=== PATIENT | female | born 1975 | race Caucasian/White ===

== ENCOUNTER 2016-10-29 18:35 | Emergency (ER) | payer BC ==
[2016-10-29 19:26] VITALS: BP 144/72; PULSE 70; RESP 18; TEMP 98.7
[2016-10-29] MEDS ORDERED: KETOROLAC 60 MG/2 ML VIAL IM STA (20:33)
[2016-10-29] MEDS ORDERED: ORPHENADRINE 30 MG/ML 2 ML VIAL IM STA (20:33)
--- NOTE | 2016-10-29 20:40 | ED ---
General Adult HPI - General Chief complaint: Back Pain/Injury Stated complaint: BACK PAIN Time Seen by Provider: 10/29/16 20:14 Source: patient, RN notes reviewed Mode of arrival: ambulatory Limitations: no limitations - History of Present Illness Initial comments: This is a 40-year-old female who presents with lower back pain. Patient states it started out of the blue while she was sitting at her desk at work yesterday. Patient denies any injury or trigger of the pain. Patient states she has a history of lower back pain and has had surgery in 2006 for a ruptured disc. Patient states she has not had many problems since then. Patient has not taken anything for the pain and states it is getting progressively worse. Patient states she has some radiation of the pain down the right thigh but denies any numbness/tingling or weakness. Patient is able to ambulate. Patient states the pain is better when standing and worse when sitting. Patient denies any change in bowel or bladder function or loss of sensation to the saddle area. Patient denies any chance of being . Patient denies any recent fever, chills, shortness breath, chest pain, abdominal pain, nausea/vomiting/diarrhea, hematuria, headache, or visual changes, or any other complaints. - Related Data Home Medications Medication Instructions Recorded Confirmed Albuterol Inhaler [Ventolin 1 - 2 puff INHALATION DIRECTED 05/04/14 10/29/16 Inhaler] PRN Fluticasone/Salmeterol [Advair 2 puff INHALATION DAILY 05/04/14 10/29/16 100-50 Diskus] Losartan [Cozaar] 50 mg PO DAILY 05/04/14 10/29/16 Magnesium 250 mg PO DAILY 05/04/14 10/29/16 Multivitamins, Thera [Multivitamin] 1 tab PO DAILY 05/04/14 10/29/16 metFORMIN HCL [Glucophage] 1,000 mg PO BID 05/04/14 10/29/16 Ferrous Sulfate [Feosol] 325 mg PO DAILY 05/08/14 10/29/16 Omeprazole (Unknown Dose, Otc) 1 tab PO DAILY PRN 05/25/14 10/29/16 sitaGLIPtin [Januvia] 100 mg PO DAILY 05/29/14 10/29/16 Previous Rx's Medication Instructions Recorded Acetaminophen-Codeine 300-30mg 2 each PO Q6HR PRN #30 tab 05/30/14 [Tylenol w/codeine #3] Ibuprofen [Motrin] 600 mg PO Q6HR PRN #30 tab 05/30/14 traMADol HCL [Ultram] 50 mg PO Q6HR #12 tab 10/29/16 Allergies Allergy/AdvReac Type Severity Reaction Status Date / Time No Known Allergies Allergy Verified 04/05/14 15:58 Review of Systems ROS Statement: Those systems with pertinent positive or pertinent negative responses have been documented in the HPI. ROS Other: All systems not noted in ROS Statement are negative. Past Medical History Past Medical History: Asthma, Diabetes Mellitus, Hypertension Additional Past Medical History / Comment(s): EDEMA ANKLES, FEET. MENSES SEVERE W/ PAIN, HEAVY. OB history:2 vaginal deliveries and one SAB History of Any Multi-Drug Resistant Organisms: None Reported Past Surgical History: Back Surgery, Hysterectomy Additional Past Surgical History / Comment(s): REPAIR RUPTURED DISC. LAPAROSCOPY FOR ENDOMETRIOSIS. Past Anesthesia/Blood Transfusion Reactions: No Reported Reaction Additional Past Anesthesia/Blood Transfusion Reaction / Comment(s): ADOPTED, NO KNOWN FAM HX. Past Psychological History: No Psychological Hx Reported Smoking Status: Never smoker Past Alcohol Use History: Occasional Past Drug Use History: None Reported General Exam - General Exam Comments Initial Comments: General: The patient is awake and alert, in no distress, and does not appear acutely ill. Neck: The neck is supple, there is no tenderness or JVD. Cardiovascular: There is a regular rate and rhythm. No murmur, rub or gallop is appreciated. Respiratory: Lungs are clear to auscultation, respirations are non-labored, breath sounds are equal. No wheezes, stridor, rales, or rhonchi. Musculoskeletal: There is tenderness to palpation over the lumbar spine, patient has full range of motion, strength 5/5 and Sensation intact. Patient is ambulatory in the EC. Radial pulses are 2+ bilaterally. Neurological: A&O x 3. CN II-XII intact, There are no obvious motor or sensory deficits. Coordination appears grossly intact. Speech is normal. Skin: Skin is warm and dry and no rashes or lesions are noted. Psychiatric: Normal mood and affect. Limitations: no limitations Course Vital Signs 10/29/16 19:23 Temperature 98.7 F Pulse Rate 70 Respiratory 18 Rate Blood Pressure 144/72 O2 Sat by Pulse 98 Oximetry Medical Decision Making - Medical Decision Making This is a 41-year-old female who presents with lower back pain since yesterday. On physical exam patient is neurologically intact. There is tenderness to palpation over the lumbar spine, patient has full range of motion, strength 5/5 and Sensation intact. Patient is ambulatory in the EC. Radial pulses are 2+ bilaterally. An x-ray of the lumbar spine was done and reviewed showing: Mild to moderate spondylosis at L4/L5 and L5/S1. No fracture. Report read by Dr. Zuñiga. Patient was given Toradol and Norflex in the EC today and patient noticed some relief.I discussed the x-ray results with patient. I discussed continuation of Tylenol and Motrin for pain. I discussed tramadol for breakthrough pain. Discussed heating pads. I discussed return parameters.Discussed that patient should follow up with PCP in one to 2 days or return to the EC for any worsening symptoms or for any further concerns. Patient was receptive to this plan and patient will be discharged home. Disposition Clinical Impression: Spondylosis, Low back pain Disposition: HOME SELF-CARE Condition: Good Instructions: Acute Low Back Pain (ED) Additional Instructions: please continue Tylenol and Motrin for pain. Please use tramadol for breakthrough pain. May use heating pads to the area.Please use medication as discussed. Please follow-up with family doctor in the next 2 days of symptoms have not improved. Please return to emergency room if the symptoms increase or worsen or for any other concerns. Prescriptions: traMADol HCL [Ultram] 50 mg PO Q6HR #12 tab Referrals: Vasu Vega MD [Primary Care Provider] - 1-2 days Time of Disposition: 21:33
--- NOTE | 2016-10-29 21:12 | XR ---
EXAMINATION TYPE: XR lumbar spine 2 or 3V DATE OF EXAM: 10/29/2016 9:02 PM COMPARISON: NONE HISTORY: Back pain TECHNIQUE: 3 views FINDINGS: Lumbar vertebra have normal alignment. There is narrowing at L4-5 and L5-S1 disc spaces wit h spurring. Posterior elements are intact. There is no compression fracture. Sacroiliac joints are no rmal. IMPRESSION: Mild to moderate spondylosis at L4-5 and L5-S1. No fracture.
== END 2016-10-29 21:53 | disposition home or self-care (01) ==
LOC: EC 18:35
DX: M47.817 Spondylosis without myelopathy or radiculopathy, lumbosacral region (principal); M79.651 Pain in right thigh; J45.909 Unspecified asthma, uncomplicated; I10 Essential (primary) hypertension; E11.9 Type 2 diabetes mellitus without complications; Z79.51 Long term (current) use of inhaled steroids; Z79.84 Long term (current) use of oral hypoglycemic drugs; Z79.899 Other long term (current) drug therapy; Z98.890 Other specified postprocedural states
CPT/HCPCS: 99283 ×2; 96372 ×3; 72100; J2360; J1885

== ENCOUNTER → 2017-07-10 | Outpatient (CLI) | payer BC ==
[2017-07-10 08:19] LABS: CH 30.9; CHCM 32.9; HCT 39.6 % (34.0-46.0); HDW 2.31; HGB 12.8 gm/dL (11.4-16.0); MCH 30.4 pg (25.0-35.0); MCHC 32.2 g/dL (31.0-37.0); MCV 94.4 fL (80.0-100.0); Mean Platelet Volume 7.3; RBC 4.19 m/uL (3.80-5.40); RDW 13.4 % (11.5-15.5); WBC 5.7 k/uL (3.8-10.6)
[2017-07-10 08:42] LABS: ALT 55 U/L (9-52); AST 41 U/L (14-36); Alkaline Phosphatase 53 U/L (38-126); Anion Gap 8 mmol/L; Blood Urea Nitrogen 11 mg/dL (7-17); Calcium 10.4 mg/dL (8.4-10.2); Carbon Dioxide 28 mmol/L (22-30); Chloride 104 mmol/L (98-107); Cholesterol 191 mg/dL (<200); Glucose 119 mg/dL (74-99); HDL Cholesterol 75 mg/dL (40-60); Non-African American GFR(MDRD) >60 (>60 ml/min/1.73 sqM); Potassium 4.7 mmol/L (3.5-5.1); Sodium 140 mmol/L (137-145); Total Bilirubin 0.4 mg/dL (0.2-1.3); Total Protein 6.8 g/dL (6.3-8.2)
== END | disposition home or self-care (01) ==
LOC: LABWHC1 07:42
PROVIDERS: ATTEND Nurse Practitioner Women's Health
DX: E11.9 Type 2 diabetes mellitus without complications (principal); I10 Essential (primary) hypertension
CPT/HCPCS: 36415; 80053; 80061; 84443; 85027

== ENCOUNTER → 2018-07-07 | Outpatient (CLI) | payer BC ==
[2018-07-07 16:34] LABS: HCT 38.3 % (34.0-46.0); HGB 13.1 gm/dL (11.4-16.0); MCH 31.3 pg (25.0-35.0); MCHC 34.1 g/dL (31.0-37.0); MCV 91.8 fL (80.0-100.0); Platelet Count 263 k/uL (150-450); RBC 4.17 m/uL (3.80-5.40); RDW 12.5 % (11.5-15.5); WBC 4.9 k/uL (3.8-10.6)
[2018-07-08 02:51] LABS: Progesterone <0.2 ng/mL
--- NOTE | 2018-07-09 12:11 | MM ---
Reason for exam: screening (asymptomatic). Last mammogram was performed 2 years and 11 months ago. Physical Findings: A clinical breast exam by your physician is recommended on an annual basis and results should be correlated with mammographic findings. MG 3D Screening Mammo W/Cad Bilateral CC and MLO view(s) were taken. Prior study comparison: August 17, 2015, right breast MG 3d work up w/cad RT. August 06, 2015, bilateral MG screening mammo w CAD. The breast tissue is heterogeneously dense. This may lower the sensitivity of mammography. No suspicious abnormality. Left superior posterior depth asymmetry appears similar to 2015. No significant changes when compared with prior studies. ASSESSMENT: Benign, BI-RAD 2 RECOMMENDATION: Routine screening mammogram of both breasts in 1 year.
== END ==
LOC: RADMAMWWP 15:47
PROVIDERS: ATTEND Surgery
DX: Z12.31 Encounter for screening mammogram for malignant neoplasm of breast (principal); G47.00 Insomnia, unspecified; E34.9 Endocrine disorder, unspecified; R53.81 Other malaise; N95.1 Menopausal and female climacteric states; R68.82 Decreased libido; R61 Generalized hyperhidrosis
CPT/HCPCS: 36415; 77063; 77067; 82627; 82670; 84140; 84144; 84270; 84403; 84443; 84481; 85027

== ENCOUNTER → 2020-06-12 | Outpatient (CLI) | payer BC | END | disposition home or self-care (01) | LOC: LABWHC1 09:18 | PROVIDERS: ATTEND Pediatrics Pediatric Infectious Diseases | DX: Z03.818 Encounter for observation for suspected exposure to other biological agents ruled out (principal) | CPT/HCPCS: U0003; C9803 ==